=== PATIENT | male | born 1970 | race Caucasian/White ===

== ENCOUNTER → 2023-05-09 17:23 | Outpatient (REF) | payer OTHER, SELFPAY | LOC: HWRAD 17:23 | PROVIDERS: ATTENDING PHYSICIAN Family Medicine | DX: M79.671 Pain in right foot (principal); M25.552 Pain in left hip | CPT/HCPCS: 73650 ==

== ENCOUNTER → 2025-01-24 11:29 | Outpatient (REF) | payer OTHER, SELFPAY | LOC: RAD 11:29 | PROVIDERS: ATTENDING PHYSICIAN Physician Assistant Medical | DX: M25.511 Pain in right shoulder (principal) | CPT/HCPCS: 73030 ==